=== PATIENT | female | born 1975 | race Caucasian/White ===

== ENCOUNTER 2022-06-16 14:00 | Outpatient (CLI) | payer OTHER, SELFPAY ==
[2022-06-16 15:51] LABS: Basophils Percent Auto 0.4 % (0.2-1.2); Eosinophils Absolute Auto 0.1 K/mm3 (0-0.3); Eosinophils Percent Auto 2.7 % (0-4.4); Hematocrit 38.9 % (37.0-47.0); Hemoglobin 13.3 g/dL (12.0-15.0); Immature Granulocyte Absolute 0.01 K/mm3 (0.00-0.031); Immature Granulocyte Percent A 0.2 % (0-0.5); Lymphocytes Absolute Auto 1.39 K/mm3 (0.9-3.2); Lymphocytes Percent Auto 28.9 % (18.3-44.2); Mean Corpuscular HGB Conc 34.2 g/dl (32-36); Mean Corpuscular Hemoglobin 32.4 pg (26-34); Mean Corpuscular Volume 94.6 fl (80-100); Mean Platelet Volume 10.4 fl (7.4-10.4); Monocytes Absolute Auto 0.5 K/mm3 (0.1-0.6); Neutrophils Absolute Auto 2.8 K/mm3 (1.3-6.7); Neutrophils Percent Auto 57.8 % (45.5-73.1); Platelet Count Result 233 k/mm3 (150-375); Red Blood Count 4.11 M/mm3 (4.2-5.4); Red Cell Distribution Width 12.2 % (11.5-14.5); White Blood Count 4.8 K/mm3 (4.5-10.0)
== END 2022-06-16 14:01 | disposition home or self-care (01) ==
PROVIDERS: Visit Provider Obstetrics & Gynecology
DX: Z01.812 Encounter for preprocedural laboratory examination (principal); N93.9 Abnormal uterine and vaginal bleeding, unspecified
CPT/HCPCS: 36415; 85025; 86850; 86900; 86901

== ENCOUNTER 2022-06-23 00:24 | Day surgery (SDC) | payer OTHER, SELFPAY ==
[2022-06-14 15:23] VITALS: BMI 24.8
--- NOTE | 2022-06-14 15:27 | SUR.PREOP ---
Report to the Outpatient Waiting Room, entrance under the green pavilion located off [facility], at time 0730 on date _06/23/22 . OR Time: _929 . - You and your visitor will be asked a series of questions to screen for COVID 19 for your protection. - Only one visitor is allowed at this time. - The patient visitor is requested to leave or wait in car when not with patient. - A mask is required within the hospital. Patients may have clear liquids (water, carbonated beverages, clear teas, apple juice) until 3 hours prior to surgery with a maximum of 20 ounces. - No food from midnight until time of surgery - Infants may have breast milk until 4 hours before surgery, infant formula 6 hours prior to surgery. - Children will be allowed to drink immediately following surgery. If applicable, please bring a bottle or sippy cup to assist with drinking. Juice, water, soda, and popsicles are readily available. For infants on formula, please bring formula the day of surgery. Pacifiers are allowed. Take the following medications with a SIP of water the morning of surgery: ____n/a Medications to discontinue per physician __vitamin supplements Date to take last dose__06/20/22 Please no make-up, nail slovenian, hairspray, perfume, deodorant, or body powder the day of surgery. No jewelry (including any body piercings) or valuables the day of surgery, leave them at home. Please take a shower or bath the night before, or the morning of, surgery with an antibacterial soap. Wear comfortable, loose fitting clothing. Children are encouraged to wear pajamas. - Jewelry must be removed prior to entering the operating room. Rings and piercings that are not removed may be cut off. - The hospital will not accept responsibility for valuables. - Please leave all valuables, including medications, at home the day of surgery. If you are going home after surgery, a licensed driver retraining instructor must drive you home. - NO public transportation without another adult. - We recommend that an adult stay with you for 24 hours following discharge. - We also recommend that you do not drive, make important decision, drink alcoholic beverages, or take any drugs that were not prescribed by your health care provider for at least 24 hours after your discharge time. For Pediatric surgeries, we recommend two adults accompany the child home (only one inside the building at this time). Follow any additional instructions given to you from your surgeon. If you or anyone in your household have experienced Covid symptoms in the past week, please notify your surgeon or the nurse liaison at the phone number below for possible testing. Telephone instructions given to __yosef custer and asked if any additional questions and then verbalized understanding. Patient advised to call surgeon office or pre surgery nurse liaison [phone] if any additional questions.
--- NOTE | 2022-06-19 17:36 | PM.IMHP ---
H&P: HPI History of Present Illness Date/Time: 06/19/22 17:36 Chief Complaint: Pelvic pain and bleeding Narrative: This is a 46-year-old female who is admitted for robotic total vaginal hysterectomy and bilateral salpingectomy secondary to an enlarged uterus bleeding refractory to medical therapy and pelvic pain. She opts for robotic hysterectomy and bilateral salpingectomy. Risks and benefits reviewed including but not exclusive of , aspiration pneumonia, bleeding, transfusion, perforation injury to bowel, bladder, ureters, or other internal organs with need for open laparotomy. She received the [employer] handout entitled hysterectomy. She received the [place] handout. She had all questions answered. She asked to proceed PMF Social History Social History Smoking status: Never smoker Spiritual care concerns: No Meds Home Medications and Allergies Home Medications Medication Instructions Recorded Confirmed Type amino acids (Amino Acid capsule) 1 cap PO QID 06/14/22 06/14/22 History collagen,hydrolysate 500 mg-biotin 1 cap PO DAILY 06/14/22 06/14/22 History 800 mcg-ascorbic acid 50 mg capsule magnesium 250 mg tablet 250 mg PO DAILY 06/14/22 06/14/22 History multivitamin 1 cap PO DAILY 06/14/22 06/14/22 History omega-3 fatty acids-vitamin E 2 cap PO TID 06/14/22 06/14/22 History 1,000 mg capsule vitamin E 600 unit capsule 600 unit PO DAILY 06/14/22 06/14/22 History Allergies Allergy/AdvReac Type Severity Reaction Status Date / Time Sulfa (Sulfonamide Allergy Intermediate Hives Verified 06/14/22 14:59 Antibiotics) Exam : External Female Exam: normal external appearance Speculum Exam - Vagina: normal appearance of the vagina Speculum Exam - Cervix: normal appearance of the cervix Bimanual exam- vagina & uterus: enlarged and Uterine tenderness Assessment and Plan Assessment and plan (1) Enlarged uterus: Code(s): N85.2 - Hypertrophy of uterus Status: Acute (2) Pelvic pain: Code(s): R10.2 - Pelvic and perineal pain Status: Acute (3) Vaginal bleeding: Code(s): N93.9 - Abnormal uterine and vaginal bleeding, unspecified Status: Acute Plan Robotic total vaginal hysterectomy and bilateral salpingectomies
[2022-06-23] VITALS (10 sets, daily range): BP systolic 105–131; BP diastolic 69–84; PULSE 51–88; RESP 12–16; TEMP 36.1–37.1; O2SAT 97–100
--- NOTE | 2022-06-23 06:24 | WPDHPUPDATE1 ---
History and Physical Update Update Date/Time: 06/23/22 06:24 History and Physical has been reviewed, including an updated exam of the patient. There are NO changes in the patient's condition. Risks, benefits, and alternatives have been discussed and questions answered. Patient agrees to proceed with procedure.
--- NOTE | 2022-06-23 08:33 | WPDANESEPPF ---
Anes - Initial Pre Proc Eval Procedure: Operation Date: 06/23/22 09:30 Proposed Procedures p Robotic Assisted Total Vaginal Hysterectomy with Bilateral Salpingectomy - Derrick Shelton MD Date/Time: 06/23/22 08:33 Surgeon: Derrick Shelton MD Pre Op Diagnosis: Pelvic Pain,Heavy Bleed, Enlarged Uterus,Fibroids Patient Data Age: 46 Gender: F Height: 1.6 m Weight: 63.63 kg Allergies Allergy/AdvReac Type Severity Reaction Status Date / Time Sulfa (Sulfonamide Allergy Intermediate Hives Verified 06/14/22 14:59 Antibiotics) metronidazole Allergy Hives Verified 06/23/22 08:16 prednisone Allergy Unknown Verified 06/23/22 08:16 Home Medications Medication Instructions Recorded Confirmed Type amino acids (Amino Acid capsule) 1 cap PO QID 06/14/22 06/14/22 History collagen,hydrolysate 500 mg-biotin 1 cap PO DAILY 06/14/22 06/14/22 History 800 mcg-ascorbic acid 50 mg capsule magnesium 250 mg tablet 250 mg PO DAILY 06/14/22 06/14/22 History multivitamin 1 cap PO DAILY 06/14/22 06/14/22 History omega-3 fatty acids-vitamin E 2 cap PO TID 06/14/22 06/14/22 History 1,000 mg capsule vitamin E 600 unit capsule 600 unit PO DAILY 06/14/22 06/14/22 History hydrocodone 5 mg-acetaminophen 325 1 tablet PO Q4H PRN pain #30 tabs 06/23/22 Rx mg tablet Patient hx anesthesia problems: none Family hx anesthesia problems: none Results Review: All pre-operative results and documents have been reviewed as part of the pre-operative evaluation. [facility] Social History Social History Smoking status: Never smoker Living arrangements: with family Spiritual care concerns: No Anes - Eval Final PreProcedure Day of Procedure 06/23/22 08:33 Patient weight: normal Heart: regular rate and rhythm Lungs: clear to auscultation Airway: Mallampati scale class II Neurological: alert and oriented Last oral intake: >/= 8 hours ASA classification: I Emergent: no Anesthetic plan: proceed Anesthesia type and monitoring: general ETT and standard monitoring Results Review: All pre-operative results and documents have been reviewed as part of the pre-operative evaluation. Informed Consent: The patient's anesthetic plan and its attendant risks and benefits were discussed with the patient/family/POA. Questions were solicited and answers provided to the satisfaction of the patient/family/POA.
[2022-06-23] MEDS: ACETAMINOPHEN 500 MG TABLET 1000 MG PO (08:55)
[2022-06-23] MEDS: KETOROLAC 15 MG/ML VIAL (*BKC) IV PUSH (08:55)
[2022-06-23] MEDS: LACTATED RINGERS 1,000 ML 30 ML IV CONT ×2 (09:01→10:33)
[2022-06-23] MEDS: ceFAZolin 2 GM/D5W 50 ML 2 GM/50 ML BAG IVPB (09:10)
--- NOTE | 2022-06-23 10:22 | P.OP_ITS ---
Procedure Note - Detailed Date of Procedure 06/23/22 Pre-op Diagnosis Pelvic Pain,Heavy Bleed, Enlarged Uterus,Fibroids Post-op Diagnosis Same Procedure Performed Robotic total vaginal hysterectomy and bilateral salpingectomy Surgeon Derrick Shelton MD Anesthesia General Indications this is a 46-year-old female with bleeding pain and prolapse Findings enlarged uterus. Tubes status post tubal ligation. Normal-appearing ovaries Description of Procedure the patient was prepped draped in normal sterile fashion placed in the dorsal lithotomy position. Under excellent general trach anesthesia weighted speculum placed post burned vagina. Anterior lip of the cervix grasped with single-tooth tenaculum and the uterus sounded to 12cm. Serial dilatation with fragmented dilators performed followed by passage of the 10. VALERIA and the 3. Cold cup. A 16 Sudan[place] catheter was placed in the bladder and drained of clear urine. The gloves were changed after the weighted speculum was removed A supraumbilical incision made the Veress needle passed in the abdomen. Abdomen filled with CO2 gas [id number]. The 8mm trocar advanced the abdomen downside visualized. No injury seen. Patient placed in Trendelenburg and right left lateral quadrant incision made. The 8mm trocars advanced under direct visualization assuring no injury. A right upper quadrant incision made and 8mm trocar advanced under direct visualization. The robot was docked. Attention was turned to the social services counselor. The left round ligament was grasped, burned, cut. Anterior bladder flap was formed by sharply dissecting the peritoneum and reflecting the bladder caudally from the uterus and cervix to the opposite round ligament was clamped, burned, cut. The stump of the left fallopian tube was left at its entrance in the uterus. There was minimal to no tube on the right. The left utero-ovarian ligament was skeletonized to remove clamped, burned, cut conserving the left ovary. Conserving the right ovary, the right utero-ovarian was clamped, burned, cut. Next cardinal and broad ligaments on the left were serially skeletonized. These were clamped, burned, cut and brought down the lateral edge of the uterus until the uterine vessels could be seen. These were large and tortuous. There were individually clamped, burned, cut. In like fashion the cardinal broad ligaments on the right were serially skeletonized. These were clamped, burned, cut until the uterine vessels could be seen. These were then individually clamped, burned, cut. Blaalvarohing the uterus was noted. Colpotomy incision was made in the cervix uterus and portions of tube removed through the vagina. The vagina was then closed with continuous running 0V lock from lateral edge to lateral edge and back to the midline. Irrigation undertaken until clear and [place] term then placed over raw surface areas. The robot was undocked. The gas removed from the abdomen. The trocars removed and the incisions closed with 4 0 Monocryl glue. The patient was a wakened and went to recovery in satisfactory condition. All sponge, needle, instrument counts were correct. There were no immediate complications Estimated Blood Loss 25 Drains No Packing No Pathology Yes Complications No immediate complications Condition Stable Disposition PACU
[2022-06-23] MEDS: fentaNYL CITRATE INJ (*CRX) 100 MCG/2 ML VIAL 25 MCG IV PUSH (11:08)
[2022-06-23] MEDS: ONDANSETRON INJ 4 MG/2 ML VIAL IV PUSH (11:43)
--- NOTE | 2022-06-23 11:52 | PC.NURSE ---
This patient, Shima Hurt, was received from PACU on 06/23/22 at 1152. Patient/family oriented to unit policies and routines
[2022-06-23] MEDS: KETOROLAC 30 MG/ML VIAL (*BKC) IV PUSH (12:07)
[2022-06-23] MEDS: DEXTROSE 5%/LACTATED RINGERS 1,000 ML 125 ML IV CONT (12:07)
--- NOTE | 2022-06-23 12:24 | PM.DS ---
DS: Admitting Diagnosis Discharge Date 06/24/2022 Admitting Diagnosis Pelvic pain/enlarged uterus/uterine prolapse DS: Discharge Diagnosis Discharge Diagnosis (1) Vaginal bleeding: Code(s): N93.9 - Abnormal uterine and vaginal bleeding, unspecified Status: Acute (2) Pelvic pain: Code(s): R10.2 - Pelvic and perineal pain Status: Acute (3) Enlarged uterus: Code(s): N85.2 - Hypertrophy of uterus Status: Acute DS: Summary Hospital Course Reason for hospitalization: The patient was admitted for robotic hysterectomy and bilateral salpingectomy Hospital Course: Patient aware robotic hysterectomy and bilateral salpingectomy on 06/23/2022. Please see the operative report for full details. Her hospital course was unremarkable. She remained afebrile. She was up, voiding without difficulty, ambulating, eating regular diet, and generally without complaints. Time Spent with Patient Time attestation: Total time spent providing and/or coordinating discharge services: DS: Data Data Completed and Pending Pending studies at discharge: Pending at discharge 06/23/22 09:51 Surgical [PTH] Routine Discharge Plan Discharge Patient Disposition: Home, Self-Care Stand Alone Forms: General Discharge Instructions Follow-up/Referrals: Derrick Jonas MD [Physician] - Discharge Medications: New hydrocodone-acetaminophen 5-325 mg tablet 1 tablet PO Q4H PRN (Reason: pain) Qty: 30 0RF No Action Amino Acid Capsule 1 cap PO QID vitamin E 600 unit Capsule 600 unit PO DAILY magnesium 250 mg Tablet 250 mg PO DAILY multivitamin Capsule 1 cap PO DAILY Fish Oil 1,000 mg Capsule 2 cap PO TID oyvvtylx-teyiaa-cwdwiyaj acid 500 mg-800 mcg- 50 mg Capsule 1 cap PO DAILY Label Comments:
[2022-06-23] MEDS: DOCUSATE SODIUM 100 MG CAPSULE PO (17:25)
[2022-06-23] MEDS: IBUPROFEN 600 MG TABLET PO (17:26)
[2022-06-23] MEDS: SIMETHICONE 80 MG TAB.CHEW PO (21:12)
[2022-06-23] MEDS: ACETAMINOPHEN 325 MG TABLET 650 MG PO (21:12)
[2022-06-23] MEDS: ALPRAZolam (*CRX) 0.25 MG TABLET PO (22:03)
[2022-06-24] MEDS: SIMETHICONE 80 MG TAB.CHEW PO ×2 (04:22→07:28)
[2022-06-24] MEDS: IBUPROFEN 600 MG TABLET PO ×2 (04:22→09:50)
[2022-06-24] MEDS: ACETAMINOPHEN 325 MG TABLET 650 MG PO ×2 (04:22→09:50)
[2022-06-24 04:30] VITALS: BP 138/85; PULSE 55; RESP 16; TEMP 36.4
[2022-06-24 06:26] LABS: Basophils Percent Auto 0.2 % (0.2-1.2); Eosinophils Absolute Auto 0.1 K/mm3 (0-0.3); Hematocrit 36.8 % (37.0-47.0); Hemoglobin 12.3 g/dL (12.0-15.0); Immature Granulocyte Absolute 0.02 K/mm3 (0.00-0.031); Immature Granulocyte Percent A 0.2 % (0-0.5); Lymphocytes Absolute Auto 1.62 K/mm3 (0.9-3.2); Lymphocytes Percent Auto 18.8 % (18.3-44.2); Mean Corpuscular HGB Conc 33.4 g/dl (32-36); Mean Corpuscular Hemoglobin 31.9 pg (26-34); Mean Corpuscular Volume 95.6 fl (80-100); Mean Platelet Volume 10.7 fl (7.4-10.4); Monocytes Absolute Auto 0.7 K/mm3 (0.1-0.6); Neutrophils Absolute Auto 6.2 K/mm3 (1.3-6.7); Neutrophils Percent Auto 71.8 % (45.5-73.1); Platelet Count Result 207 k/mm3 (150-375); Red Blood Count 3.85 M/mm3 (4.2-5.4); Red Cell Distribution Width 12.3 % (11.5-14.5); White Blood Count 8.6 K/mm3 (4.5-10.0)
[2022-06-24 07:30] VITALS: BP 120/90; PULSE 65; RESP 16; TEMP 36.4; O2SAT 100
--- NOTE | 2022-06-24 07:44 | PM.DS ---
DS: Admitting Diagnosis Discharge Date 06/24/22 Admitting Diagnosis pelvic pain vaginal bleeding enlarged uterus DS: Summary Hospital Course Hospital Course: Shima Hurt was admitted after robotic assisted total laparoscopic hysterectomy and bilateral salpingectomy for vaginal bleeding, enlarged uterus. The above procedure was performed with no complications. She is doing well post op. She states her pain is well controlled with PO medications. She reports minimal bleeding. She is ambulating up to the chair. Her jasso catheter was removed. She is tolerating PO without N/V. She reports passing flatus. Status at Discharge Overall status at discharge: patient is progressing back to baseline Time Spent with Patient Time attestation: Total time spent providing and/or coordinating discharge services: Time spent: Less than 30 minutes Exam Const: General: comfortable and no acute distress Limitations: no limitations Resp: Effort & Inspection: normal respiratory effort Auscultation: clear to auscultation bilaterally Cardio: Rate: regular rate Rhythm: regular rhythm GI: Inspection: non-distended GI Palp: Yes Soft to palpation, Yes Tenderness to palpation present (GI) (milder tenderness to deep palpation) and No Guarding due to palpation present (GI) Auscultation: normal bowel sounds Other: incisions C/D/I covered with dermabond Urinary Catheter: Urinary Catheter: urine clear Skin: General skin exam: normal color Extrem: General: normal to inspection Psych: Mental Status: mental status grossly normal Affect: normal affect DS: Data Data Completed and Pending Pending studies at discharge: Pending at discharge 06/23/22 09:51 Surgical [PTH] Routine Labs on day of discharge: Labs from last 24 hours 06/24/22 04:26 WBC 8.6 RBC 3.85 L Hgb 12.3 Hct 36.8 L MCV 95.6 MCH 31.9 MCHC 33.4 RDW 12.3 Plt Count 207 MPV 10.7 H Immature Gran % (Auto) 0.2 Neut % (Auto) 71.8 Lymph % (Auto) 18.8 [place] % (Auto) 8.0 Eos % (Auto) 1.0 Baso % (Auto) 0.2 Lymph # (Auto) 1.62 [place] # (Auto) 0.7 H Eos # (Auto) 0.1 Baso # (Auto) 0.0 Abs Immat Gran (auto) 0.02 Absolute Neuts (auto) 6.2 Absolute Nucleated RBC 0.0 Nucleated RBC % 0.0 Discharge Plan Discharge Patient Disposition: Home, Self-Care Stand Alone Forms: General Discharge Instructions Follow-up/Referrals: Derrick Jonas MD [Physician] - Discharge Medications: New hydrocodone-acetaminophen 5-325 mg tablet 1 tablet PO Q4H PRN (Reason: pain) Qty: 30 0RF No Action Amino Acid Capsule 1 cap PO QID vitamin E 600 unit Capsule 600 unit PO DAILY magnesium 250 mg Tablet 250 mg PO DAILY multivitamin Capsule 1 cap PO DAILY Fish Oil 1,000 mg Capsule 2 cap PO TID yxrtlcky-fnclub-yvcthgfj acid 500 mg-800 mcg- 50 mg Capsule 1 cap PO DAILY Label Comments:
--- NOTE | 2022-06-24 09:41 | P.PNAN_ITS ---
Anes - Prog Note Post-Op Date/Time: 06/24/22 09:41 Cardiovascular status: normal Respiratory status: normal Airway patency: baseline Mental status: baseline Post-Op hydration status: normal Vital Signs: Last Vital Signs Temp 36.4 C L 06/24/22 07:30 Pulse 65 06/24/22 07:30 Resp 16 06/24/22 07:30 BP 120/90 06/24/22 07:30 Pulse Ox 100 06/24/22 07:30 O2 Del Method Room Air 06/24/22 07:30 O2 Flow Rate 10 06/23/22 10:45 Pain Score (VAS): 11/28 I/O: Intake & Output 06/23/22 06/24/22 06/24/22 23:59 07:59 15:59 Intake Total 400 Output Total 1100 Balance -700 Laboratory Tests 06/24/22 04:26 06/24/22 04:26 WBC 8.6 RBC 3.85 L Hgb 12.3 Hct 36.8 L MCV 95.6 MCH 31.9 MCHC 33.4 RDW 12.3 Plt Count 207 MPV 10.7 H Immature Gran % (Auto) 0.2 Neut % (Auto) 71.8 Lymph % (Auto) 18.8 [place] % (Auto) 8.0 Eos % (Auto) 1.0 Baso % (Auto) 0.2 Lymph # (Auto) 1.62 [place] # (Auto) 0.7 H Eos # (Auto) 0.1 Baso # (Auto) 0.0 Abs Immat Gran (auto) 0.02 Absolute Neuts (auto) 6.2 Absolute Nucleated RBC 0.0 Nucleated RBC % 0.0 Post-procedural complaints: none Patient Feedback: Patient satisfied with anesthetic care.
== END 2022-06-24 09:55 | disposition home or self-care (01) ==
LOC: ANHSURGERY 07:38 → ANHOB2 11:47
PROVIDERS: Visit Provider Obstetrics & Gynecology
PROC: (CPT 58552; principal; 2022-06-23 09:30)
DX: R10.2 Pelvic and perineal pain (principal); N93.9 Abnormal uterine and vaginal bleeding, unspecified; D25.1 Intramural leiomyoma of uterus
CPT/HCPCS: 58552; S2900; 36415; 85025; 88307; 99199; A9270; J0690; J1100; J1170; J1885; J2250; J2405; J2704; J2710; J3010; J7030; J7120; J7121